=== PATIENT | male | born 1950 | race Caucasian/White ===

== ENCOUNTER 2022-02-06 00:04 | Emergency (ER) | payer MEDICARE ==
[~2022-02-06] VITALS: Ht 175.3 cm; Wt 99.8 kg
[2022-02-06 00:33] LABS: HEMATOCRIT 43.7 % (39.0-53.0); HEMOGLOBIN 15.1 g/dL (13.0-17.5); RED BLOOD COUNT 4.71 x10^6/uL (4.30-5.70); RED CELL DISTRIBUTION WIDTH 13.1 % (11.5-14.5); WHITE BLOOD COUNT 8.8 x10^3/uL (4.0-11.0)
[2022-02-06 00:47] LABS: CALCIUM 10.1 mg/dL (8.5-10.1); CREATININE 1.2 mg/dL (0.7-1.3); GFR 59.3; POTASSIUM 3.5 mmol/L (3.5-5.1)
[2022-02-06 02:59] VITALS: BP 170/61
--- NOTE | 2022-02-06 03:13 | PHYS DOC ---
General Adult EDM: Chief Complaint: OTHER COMPLAINTS HPI: HPI: Patient is a 71 year old male who presents with both hands being cold. Started this evening. History of partial parathyroidectomy. No fever or chills. No vomiting or diarrhea. No chest pain or shortness of breath. No loss of consciousness. No history of vasculitis. Denies being a smoker. His hands currently still feel very cold to him. He is concerned that it could be his calcium. Review of Systems: Review of Systems: Constitutional: Denies fever or chills. [] Eyes: Denies change in visual acuity. [] HENT: Denies nasal congestion or sore throat. [] Respiratory: Denies cough or shortness of breath. [] Cardiovascular: Denies chest pain or edema. [] GI: Denies abdominal pain, nausea, vomiting, bloody stools or diarrhea. [] : Denies dysuria. [] Musculoskeletal: Denies back pain or joint pain. Both hands feels cold Integument: Denies rash. [] Neurologic: Denies headache, focal weakness or sensory changes. [] Endocrine: Denies polyuria or polydipsia. [] Lymphatic: Denies swollen glands. [] Psychiatric: Denies depression or anxiety. [] Heart Score: C/O Chest Pain: No Risk Factors: Risk Factors: DM, Current or recent (<one month) smoker, HTN, HLP, family history of CAD, obesity. Risk Scores: Score 0 - 3: 2.5% MACE over next 6 weeks - Discharge Home Score 4 - 6: 20.3% MACE over next 6 weeks - Admit for Clinical Observation Score 7 - 10: 72.7% MACE over next 6 weeks - Early Invasive Strategies Allergies: Allergies: Allergies Coded Allergies Type Severity Reaction Last Updated Verified acetaminophen Allergy Intermediate 02/06/22 Yes hydrocodone Allergy Intermediate 02/06/22 Yes Physical Exam: PE: Constitutional: Well developed, well nourished, no acute distress, non-toxic appearance. [] HENT: Normocephalic, atraumatic, bilateral external ears normal, oropharynx moist, no oral exudates, nose normal. [] Eyes: PERRLA, EOMI, conjunctiva normal, no discharge. [] Neck: Normal range of motion, no tenderness, supple, no stridor. [] Cardiovascular:Heart rate regular rhythm, no murmur [] Lungs & Thorax: Bilateral breath sounds clear to auscultation [] Abdomen: Bowel sounds normal, soft, no tenderness, no masses, no pulsatile masses. [] Skin: Warm, dry, no erythema, no rash. [] Back: No tenderness, no CVA tenderness. [] Extremities: No tenderness, no cyanosis, no clubbing, ROM intact, no edema. [] Neurologic: Alert and oriented X 3, normal motor function, normal sensory function, no focal deficits noted. [] Psychologic: Affect normal, judgement normal, mood normal. [] Current Patient Data: Labs: Laboratory Tests Test 02/06/22 00:15 White Blood Count 8.8 x10^3/uL (4.0-11.0) Red Blood Count 4.71 x10^6/uL (4.30-5.70) Hemoglobin 15.1 g/dL (13.0-17.5) Hematocrit 43.7 % (39.0-53.0) Mean Corpuscular Volume 93 fL (79-100) Mean Corpuscular Hemoglobin 32 pg (25-35) Mean Corpuscular Hemoglobin Concent 35 g/dL (31-37) Red Cell Distribution Width 13.1 % (11.5-14.5) Platelet Count 233 x10^3/uL (140-400) Sodium Level 136 mmol/L (136-145) Potassium Level 3.5 mmol/L (3.5-5.1) Chloride Level 101 mmol/L (98-107) Carbon Dioxide Level 27 mmol/L (21-32) Anion Gap 8 (6-14) Blood Urea Nitrogen 27 mg/dL (8-26) H Creatinine 1.2 mg/dL (0.7-1.3) Estimated GFR (Cockcroft-Gault) 59.3 Glucose Level 128 mg/dL (70-99) H Calcium Level 10.1 mg/dL (8.5-10.1) Ionized Calcium 1.30 mmol/L (1.13-1.32) Creatine Kinase 215 U/L (39-308) Troponin I High Sensitivity 14 ng/L (4-75) WY-Cwl-A-Type Natriuretic Peptide 24 pg/mL (0-124) Laboratory Tests 02/06/22 00:15 Laboratory Tests 02/06/22 00:15 Vital Signs: Vital Signs Date Time Temp Pulse Resp B/P (MAP) Pulse Ox O2 Delivery O2 Flow Rate FiO2 02/06/22 01:59 90 16 120/72 (88) 98 Room Air EKG: EKG: [] Radiology/Procedures: Radiology/Procedures: [] Course & Med Decision Making: Course & Med Decision Making Pertinent Labs and Imaging studies reviewed. (See chart for details) Patient has an unremarkable physical exam. Both hands have intact pulses. I suggest after the labs are done today that he follow-up with his primary for further testing such as thyroid etc. Dragon Disclaimer: Dragon Disclaimer: This electronic medical record was generated, in whole or in part, using a voice recognition dictation system. Departure Departure Impression: Primary Impression: Sensation of change in body temperature Disposition: 01 HOME / SELF CARE / HOMELESS Condition: STABLE Referrals: UNKNOWN PCP NAME (PCP) Additional Instructions: Please follow-up with your primary care physician DEB RODRIGUEZ MD Feb 06, 2022 03:13
[2022-02-07] MEDS ORDERED: cefTRIAXone IM 500 MG VIAL. IM ONE (01:11)
[2022-02-07] MEDS ORDERED: LOSA100T14 PO (02:07)
[2022-02-07] MEDS ORDERED: AMLO-187 PO (02:07)
[2022-02-07] MEDS ORDERED: TAMS0.4C97 PO (02:07)
[2022-02-07] MEDS ORDERED: FLUO40CA9 PO (02:07)
[2022-02-07] MEDS ORDERED: BUPR150T15 PO (02:07)
[2022-02-07] MEDS ORDERED: FINA5TAB4 PO (02:07)
--- NOTE | 2022-02-07 11:52 | EKG ---
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
== END 2022-02-06 03:16 | disposition home or self-care (01) ==
LOC: ER 00:04
DX: J00 Acute nasopharyngitis [common cold] (principal); Z88.5 Allergy status to narcotic agent; Z88.6 Allergy status to analgesic agent
CPT/HCPCS: 36415; 80048; 82310; 82550; 83880; 84484; 85027; 93005; 99285-25

== ENCOUNTER 2022-02-06 16:53 | Inpatient (IN) | payer MEDICARE ==
[~2022-02-06] VITALS: Ht 182.9 cm; Wt 99.8 kg
[2022-02-06 17:37] LABS: BASO % 0 % (0-3); EOS % 0 % (0-3); HEMATOCRIT 43.8 % (39.0-53.0); HEMOGLOBIN 15.2 g/dL (13.0-17.5); LYMPH # 2.3 x10^3/uL (1.0-4.8); LYMPH % 19 % (24-48); MEAN CORPUSCULAR HEMOGLOBIN 32 pg (25-35); MEAN CORPUSCULAR HGB CONC 35 g/dL (31-37); MEAN CORPUSCULAR VOLUME 92 fL (79-100); MONO % 8 % (0-9); NEUT # 8.9 x10^3/uL (1.8-7.7); NEUT % 73 % (31-73); PLATELET COUNT 250 x10^3/uL (140-400); RED BLOOD COUNT 4.76 x10^6/uL (4.30-5.70); RED CELL DISTRIBUTION WIDTH 12.7 % (11.5-14.5); WHITE BLOOD COUNT 12.2 x10^3/uL (4.0-11.0)
[2022-02-06 18:04] LABS: ACETAMIN < 2.0 mcg/ml (10-30); SALIC 0.7 mg/dL (2.8-20.0)
[2022-02-06 18:05] LABS: ETHANOL < 10 mg/dL (0-10)
[2022-02-06] MEDS ORDERED: IV NORMAL SALINE 1000ML BAG 1,000 ML IV ONE ×2 (18:15→23:45)
--- NOTE | 2022-02-06 18:16 | RAD ---
CT HEAD INDICATION: Altered mental status COMPARISON: None Available. Exposure: One or more of the following individualized dose reduction techniques were utilized for thi s examination: 1. Automated exposure control 2. Adjustment of the mA and/or kV according to patient size 3. Use of iterative reconstruction technique TECHNIQUE: 5 mm contiguous axial images were obtained from the skull base to the vertex in both bone and soft tissue algorithm. FINDINGS: Very limited examination due to significant motion artifact which limits evaluation. No evidence of m idline shift identified. The lateral ventricles are appropriate for age. The evaluation of the base o f the brain is limited due to significant motion artifact. IMPRESSION: Very limited examination due to significant motion artifact which limits evaluation. Consider repeat CT head when appropriate. Electronically signed by: Pedro Pablo Sims MD (02/06/2022 6:14 PM) [id number]
[2022-02-06 19:34] LABS: RBC,URINE TNTC /HPF (0-2)
[2022-02-06 19:35] LABS: BACTERIA,URINE 0 /HPF (0-FEW)
[2022-02-06 19:40] LABS: AMPHETAMINE/METHAMPHETAMINE NEG (NEG); BARBITURATES NEG (NEG); BENZODIAZEPINES NEG (NEG); CANNABINOIDS NEG (NEG); COCAINE NEG (NEG); METHADONE NEG (NEG); OPIATES NEG (NEG); PHENCYCLIDINE NEG (NEG)
[2022-02-06 19:42] LABS: CREATININE 1.2 mg/dL (0.7-1.3); GFR 59.3; POTASSIUM 3.7 mmol/L (3.5-5.1)
[2022-02-06 19:48] LABS: ALBUMIN 4.7 g/dL (3.4-5.0); ALBUMIN/GLOBULIN RATIO 1.6 (1.0-1.7); TOTAL BILIRUBIN 0.7 mg/dL (0.2-1.0); TOTAL PROTEIN 7.7 g/dL (6.4-8.2)
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
[2022-02-06] MEDS ORDERED: hydrALAZINE 20 MG/ML VIAL. IVP ONE (23:45)
[2022-02-06] MEDS ORDERED: ONDANSETRON PF 4 MG/2 ML VIAL. IVP PRN (23:45)
[2022-02-07] VITALS (13 sets, daily range): BP systolic 98–175; BP diastolic 57–83
[2022-02-07] MEDS ORDERED: cefTRIAXone IV Push 1 GM VIAL. IVP ONE
[2022-02-07] MEDS ORDERED: CEPHALEXIN 250 MG CAPSULE. PO ONE (00:30)
[2022-02-07] MEDS ORDERED: cefTRIAXone IM 1 GM VIAL IM ONE (01:30)
[2022-02-07] MEDS ORDERED: ZIPRASIDONE IM 20 MG VIAL. IM ONE ×2 (01:30→09:00)
[2022-02-07] MEDS ORDERED: BUPR150T15 PO (02:07)
[2022-02-07] MEDS ORDERED: FLUO40CA9 PO (02:07)
[2022-02-07] MEDS ORDERED: LOSA100T14 PO (02:07)
[2022-02-07] MEDS ORDERED: TAMS0.4C97 PO (02:07)
[2022-02-07] MEDS ORDERED: AMLO-187 PO (02:07)
[2022-02-07] MEDS ORDERED: FINA5TAB4 PO (02:07)
--- NOTE | 2022-02-07 02:07 | NUR ---
SPOKE WITH PATIENTS , CHEMO, AND CONFIRMED PT MEDICATION LIST. PER PATIENT HASN'T BEEN TAKING HIS PROZAC OR WELLBUTRIN FOR AT LEAST A WEEK. ALSO STATED THAT HE HAS NOT BEEN TAKING HIS AMLODIPINE- PT STATES "MY BLOOD PRESSURE GETS TO LOW".
[2022-02-07] MEDS: IV NORMAL SALINE 1000ML BAG 1,000 ML IV SCH ×4 (03:00→22:49)
[2022-02-07 05:34] LABS: BASO % 0 % (0-3); EOS % 0 % (0-3); HEMATOCRIT 40.1 % (39.0-53.0); HEMOGLOBIN 13.6 g/dL (13.0-17.5); LYMPH # 0.9 x10^3/uL (1.0-4.8); LYMPH % 7 % (24-48); MEAN CORPUSCULAR HEMOGLOBIN 32 pg (25-35); MEAN CORPUSCULAR HGB CONC 34 g/dL (31-37); MEAN CORPUSCULAR VOLUME 93 fL (79-100); MONO # 1.1 x10^3/uL (0.0-1.1); MONO % 9 % (0-9); NEUT # 10.6 x10^3/uL (1.8-7.7); NEUT % 84 % (31-73); PLATELET COUNT 207 x10^3/uL (140-400); RED BLOOD COUNT 4.29 x10^6/uL (4.30-5.70); RED CELL DISTRIBUTION WIDTH 12.7 % (11.5-14.5); WHITE BLOOD COUNT 12.6 x10^3/uL (4.0-11.0)
[2022-02-07 06:04] LABS: ALBUMIN 3.6 g/dL (3.4-5.0); ALBUMIN/GLOBULIN RATIO 1.2 (1.0-1.7); CALCIUM 8.6 mg/dL (8.5-10.1); CREATININE 1.4 mg/dL (0.7-1.3); GFR 49.7; POTASSIUM 4.3 mmol/L (3.5-5.1); TOTAL BILIRUBIN 0.6 mg/dL (0.2-1.0); TOTAL PROTEIN 6.6 g/dL (6.4-8.2)
--- NOTE | 2022-02-07 07:57 | PDOC1 ---
History and Physical Date of Service: DOS: DATE: 02/07/22 TIME: 07:50 Chief Complaint: Chief Complain: Psychosis History of Present Illness: HPI: Patient is a 71-year-old male with past medical history of parathyroid surgery last year and hypercalcemia subsequently from that who presents to the ED today for acute psychotic episode. Mainly the providing history due to altered mental status. states that patient has not been acting like himself since Monday night. Apparently the patient has been taking his antidepressants for several years but has been inconsistently taking it for the past 3 weeks. It is unsure when his last dose of Wellbutrin was although he states that his last dose was 3 weeks ago. Patient was confused and agitated and aggressive. Denies any SI or HI. Patient has paranoid thoughts. No reported fevers, nausea vomiting, chest pain, shortness of breath or trauma or falls. Repeat CT of the head completed this morning showed no acute intracranial findings. Past Medical/Surgical History: PMH/PSH: Past Medical Histor: BPH,HERNIATED DISC,PARATHYROID ISSUES Past Surgical History: PARATHYROID SX, CATARACTS Allergies: Allergies: Coded Allergies: acetaminophen (Verified Allergy, Intermediate, 02/06/22) hydrocodone (Verified Allergy, Intermediate, 02/06/22) Family History: Family History: Reviewed with no relative findings in the chart Social History: Social History: Smoking Status: Never Smoker Alcohol Use: Occasionally Current Medications: Current Medications Current Medications Sodium Chloride 1,000 ml @ 1,000 mls/hr 1X ONCE IV Last administered on 02/06/22at 18:14; Start 02/06/22 at 18:15; Stop 02/06/22 at 19:14; Status DC Lorazepam (Ativan Inj) 1 mg 1X ONCE IVP Last administered on 02/06/22at 23:05; Start 02/06/22 at 23:30; Stop 02/06/22 at 23:31; Status DC Lorazepam (Ativan Inj) 2 mg STK-MED ONCE .ROUTE ; Start 02/06/22 at 23:01; Stop 02/06/22 at 23:01; Status DC Lorazepam (Ativan Inj) 1 mg 1X ONCE IVP ; Start 02/06/22 at 23:45; Stop 02/06/22 at 23:46; Status DC Sodium Chloride 1,000 ml @ 1,000 mls/hr 1X ONCE IV Last administered on 02/06/22at 23:31; Start 02/06/22 at 23:45; Stop 02/07/22 at 00:44; Status DC Hydralazine HCl (Apresoline Inj) 10 mg 1X ONCE IVP Last administered on 02/06/22at 23:40; Start 02/06/22 at 23:45; Stop 02/06/22 at 23:46; Status DC Ondansetron HCl (Zofran) 4 mg PRN Q8HRS PRN IVP NAUSEA/VOMITING 1ST CHOICE; Start 02/06/22 at 23:45; Stop 02/07/22 at 23:44 Ceftriaxone Sodium (Rocephin) 1 gm 1X ONCE IVP ; Start 02/07/22 at 00:00; Stop 02/07/22 at 00:01; Status Cancel Cephalexin HCl (Keflex) 500 mg 1X ONCE PO Last administered on 02/07/22at 00:41; Start 02/07/22 at 00:30; Stop 02/07/22 at 00:31; Status DC Lorazepam (Ativan Inj) 2 mg 1X ONCE IM Last administered on 02/07/22at 00:21; Start 02/07/22 at 00:30; Stop 02/07/22 at 00:31; Status DC Ziprasidone (Geodon Im) 40 mg 1X ONCE IM Last administered on 02/07/22at 01:20; Start 02/07/22 at 01:30; Stop 02/07/22 at 01:31; Status DC Ceftriaxone Sodium (Rocephin Im) 1 gm 1X ONCE IM Last administered on 02/07/22at 01:15; Start 02/07/22 at 01:30; Stop 02/07/22 at 01:31; Status DC Tamsulosin HCl (Flomax) 0.4 mg DAILY PO ; Start 02/07/22 at 09:00 Sodium Chloride 1,000 ml @ 150 mls/hr Q6H40M IV Last administered on 02/07/22at 03:00; Start 02/07/22 at 03:00 Active Scripts Active Reported Amlodipine Besylate 10 Mg Tablet 10 Mg PO DAILY Finasteride 5 Mg Tablet 5 Mg PO DAILY Finasteride 5 Mg Tablet 10 Mg PO DAILY Losartan Potassium 100 Mg Tablet 100 Mg PO DAILY Wellbutrin Xl (Bupropion Hcl) 150 Mg Tab.er.24h 150 Mg PO DAILY Prozac (Fluoxetine Hcl) 40 Mg Capsule 40 Mg PO DAILY Flomax (Tamsulosin Hcl) 0.4 Mg Cap.er.24h 0.4 Mg PO DAILY ROS: Review of Systems Review of System REVIEW OF SYSTEMS: Limited due to agitation Physical Exam: Vital Signs: Vital Signs Date Time Temp Pulse Resp B/P (MAP) Pulse Ox O2 Delivery O2 Flow Rate FiO2 02/07/22 07:25 80 16 111/58 (75) 97 Room Air 02/06/22 17:22 98.4 98.4 Physcial Exam: General: Well developed, well nourished, no acute distress, well appearing HEENT: Pupils equally round and reactive to light, EOMI, no discharge, normal conjunctiva Neck: Supple, no nuchal rigidity, no JVD, trachea midline, no tenderness Cardiac: RRR, no murmurs, no gallops, no rubs Chest/Lungs: CTAB, no wheeze, no rhonchi, no crackles Abdomen: soft, non-distended, no guarding, no peritoneal signs, non-tender Back: No tenderness Extremities: no edema, pulses intact, non-tender,capillary refill <3 sec bilateral upper and lower extremities, Neuro: Labs: Labs: Laboratory Tests Test 02/06/22 17:15 02/06/22 17:45 02/06/22 19:18 02/07/22 04:10 White Blood Count 12.2 x10^3/uL (4.0-11.0) 12.6 x10^3/uL (4.0-11.0) Red Blood Count 4.76 x10^6/uL (4.30-5.70) 4.29 x10^6/uL (4.30-5.70) Hemoglobin 15.2 g/dL (13.0-17.5) 13.6 g/dL (13.0-17.5) Hematocrit 43.8 % (39.0-53.0) 40.1 % (39.0-53.0) Mean Corpuscular Volume 92 fL (79-100) 93 fL (79-100) Mean Corpuscular Hemoglobin 32 pg (25-35) 32 pg (25-35) Mean Corpuscular Hemoglobin Concent 35 g/dL (31-37) 34 g/dL (31-37) Red Cell Distribution Width 12.7 % (11.5-14.5) 12.7 % (11.5-14.5) Platelet Count 250 x10^3/uL (140-400) 207 x10^3/uL (140-400) Neutrophils (%) (Auto) 73 % (31-73) 84 % (31-73) Lymphocytes (%) (Auto) 19 % (24-48) 7 % (24-48) Monocytes (%) (Auto) 8 % (0-9) 9 % (0-9) Eosinophils (%) (Auto) 0 % (0-3) 0 % (0-3) Basophils (%) (Auto) 0 % (0-3) 0 % (0-3) Neutrophils # (Auto) 8.9 x10^3/uL (1.8-7.7) 10.6 x10^3/uL (1.8-7.7) Lymphocytes # (Auto) 2.3 x10^3/uL (1.0-4.8) 0.9 x10^3/uL (1.0-4.8) Monocytes # (Auto) 1.0 x10^3/uL (0.0-1.1) 1.1 x10^3/uL (0.0-1.1) Eosinophils # (Auto) 0.0 x10^3/uL (0.0-0.7) 0.0 x10^3/uL (0.0-0.7) Basophils # (Auto) 0.0 x10^3/uL (0.0-0.2) 0.0 x10^3/uL (0.0-0.2) Sodium Level 134 mmol/L (136-145) 137 mmol/L (136-145) Potassium Level 3.7 mmol/L (3.5-5.1) 4.3 mmol/L (3.5-5.1) Chloride Level 97 mmol/L (98-107) 103 mmol/L (98-107) Carbon Dioxide Level 25 mmol/L (21-32) 25 mmol/L (21-32) Anion Gap 12 (6-14) 9 (6-14) Blood Urea Nitrogen 26 mg/dL (8-26) 24 mg/dL (8-26) Creatinine 1.2 mg/dL (0.7-1.3) 1.4 mg/dL (0.7-1.3) Estimated GFR (Cockcroft-Gault) 59.3 49.7 BUN/Creatinine Ratio 22 (6-20) 17 (6-20) Glucose Level 127 mg/dL (70-99) 104 mg/dL (70-99) Calcium Level 10.0 mg/dL (8.5-10.1) 8.6 mg/dL (8.5-10.1) Magnesium Level 2.1 mg/dL (1.8-2.4) Total Bilirubin 0.7 mg/dL (0.2-1.0) 0.6 mg/dL (0.2-1.0) Aspartate Amino Transf (AST/SGOT) 23 U/L (15-37) 24 U/L (15-37) Alanine Aminotransferase (ALT/SGPT) 30 U/L (16-63) 21 U/L (16-63) Alkaline Phosphatase 66 U/L (46-116) 48 U/L (46-116) Creatine Kinase 309 U/L (39-308) Total Protein 7.7 g/dL (6.4-8.2) 6.6 g/dL (6.4-8.2) Albumin 4.7 g/dL (3.4-5.0) 3.6 g/dL (3.4-5.0) Albumin/Globulin Ratio 1.6 (1.0-1.7) 1.2 (1.0-1.7) Salicylates Level 0.7 mg/dL (2.8-20.0) Salicylate Last Dose Date Unknown Salicylate Last Dose Time Unknown Acetaminophen Level < 2.0 mcg/ml (10-30) Acetaminophen Last Dose Date Unknown Acetaminophen Last Dose Time Unknown Ethyl Alcohol Level < 10 mg/dL (0-10) SARS-CoV-2 Antigen (Rapid) Negative (NEGATIVE) Urine Collection Type Unknown Urine Color (Auto) Brown Urine Turbidity Hazy Urine pH (Auto) (<5.0-8.0) Urine Specific [place] (1.000-1.030) Urine Protein (Auto) mg/dL (Negative) Urine Glucose (Auto)(UA) mg/dL (Negative) Urine Ketones (Auto) mg/dL (Negative) Urine Blood (Auto) (Negative) Urine Nitrite (Auto) (Negative) Urine Bilirubin (Auto) (Negative) Urine Urobilinogen (Auto) mg/dL (Normal) Urine Leukocyte Esterase (Auto) (Negative) Urine RBC Tntc /HPF (0-2) Urine WBC 11-20 /HPF (0-4) Urine Squamous Epithelial Cells Occ /LPF Urine Bacteria 0 /HPF (0-FEW) Urine Mucus Slight /LPF Urine Opiates Screen Neg (NEG) Urine Methadone Screen Neg (NEG) Urine Barbiturates Neg (NEG) Urine Phencyclidine Screen Neg (NEG) Urine Amphetamine/Methamphetamine Neg (NEG) Urine Benzodiazepines Screen Neg (NEG) Urine Cocaine Screen Neg (NEG) Urine Cannabinoids Screen Neg (NEG) Urine Ethyl Alcohol Neg (NEG) Laboratory Tests Test 02/06/22 17:15 02/06/22 17:45 02/06/22 19:18 02/07/22 04:10 White Blood Count 12.2 x10^3/uL (4.0-11.0) 12.6 x10^3/uL (4.0-11.0) Red Blood Count 4.76 x10^6/uL (4.30-5.70) 4.29 x10^6/uL (4.30-5.70) Hemoglobin 15.2 g/dL (13.0-17.5) 13.6 g/dL (13.0-17.5) Hematocrit 43.8 % (39.0-53.0) 40.1 % (39.0-53.0) Mean Corpuscular Volume 92 fL (79-100) 93 fL (79-100) Mean Corpuscular Hemoglobin 32 pg (25-35) 32 pg (25-35) Mean Corpuscular Hemoglobin Concent 35 g/dL (31-37) 34 g/dL (31-37) Red Cell Distribution Width 12.7 % (11.5-14.5) 12.7 % (11.5-14.5) Platelet Count 250 x10^3/uL (140-400) 207 x10^3/uL (140-400) Neutrophils (%) (Auto) 73 % (31-73) 84 % (31-73) Lymphocytes (%) (Auto) 19 % (24-48) 7 % (24-48) Monocytes (%) (Auto) 8 % (0-9) 9 % (0-9) Eosinophils (%) (Auto) 0 % (0-3) 0 % (0-3) Basophils (%) (Auto) 0 % (0-3) 0 % (0-3) Neutrophils # (Auto) 8.9 x10^3/uL (1.8-7.7) 10.6 x10^3/uL (1.8-7.7) Lymphocytes # (Auto) 2.3 x10^3/uL (1.0-4.8) 0.9 x10^3/uL (1.0-4.8) Monocytes # (Auto) 1.0 x10^3/uL (0.0-1.1) 1.1 x10^3/uL (0.0-1.1) Eosinophils # (Auto) 0.0 x10^3/uL (0.0-0.7) 0.0 x10^3/uL (0.0-0.7) Basophils # (Auto) 0.0 x10^3/uL (0.0-0.2) 0.0 x10^3/uL (0.0-0.2) Sodium Level 134 mmol/L (136-145) 137 mmol/L (136-145) Potassium Level 3.7 mmol/L (3.5-5.1) 4.3 mmol/L (3.5-5.1) Chloride Level 97 mmol/L (98-107) 103 mmol/L (98-107) Carbon Dioxide Level 25 mmol/L (21-32) 25 mmol/L (21-32) Anion Gap 12 (6-14) 9 (6-14) Blood Urea Nitrogen 26 mg/dL (8-26) 24 mg/dL (8-26) Creatinine 1.2 mg/dL (0.7-1.3) 1.4 mg/dL (0.7-1.3) Estimated GFR (Cockcroft-Gault) 59.3 49.7 BUN/Creatinine Ratio 22 (6-20) 17 (6-20) Glucose Level 127 mg/dL (70-99) 104 mg/dL (70-99) Calcium Level 10.0 mg/dL (8.5-10.1) 8.6 mg/dL (8.5-10.1) Magnesium Level 2.1 mg/dL (1.8-2.4) Total Bilirubin 0.7 mg/dL (0.2-1.0) 0.6 mg/dL (0.2-1.0) Aspartate Amino Transf (AST/SGOT) 23 U/L (15-37) 24 U/L (15-37) Alanine Aminotransferase (ALT/SGPT) 30 U/L (16-63) 21 U/L (16-63) Alkaline Phosphatase 66 U/L (46-116) 48 U/L (46-116) Creatine Kinase 309 U/L (39-308) Total Protein 7.7 g/dL (6.4-8.2) 6.6 g/dL (6.4-8.2) Albumin 4.7 g/dL (3.4-5.0) 3.6 g/dL (3.4-5.0) Albumin/Globulin Ratio 1.6 (1.0-1.7) 1.2 (1.0-1.7) Salicylates Level 0.7 mg/dL (2.8-20.0) Salicylate Last Dose Date Unknown Salicylate Last Dose Time Unknown Acetaminophen Level < 2.0 mcg/ml (10-30) Acetaminophen Last Dose Date Unknown Acetaminophen Last Dose Time Unknown Ethyl Alcohol Level < 10 mg/dL (0-10) SARS-CoV-2 Antigen (Rapid) Negative (NEGATIVE) Urine Collection Type Unknown Urine Color (Auto) Brown Urine Turbidity Hazy Urine pH (Auto) (<5.0-8.0) Urine Specific [place] (1.000-1.030) Urine Protein (Auto) mg/dL (Negative) Urine Glucose (Auto)(UA) mg/dL (Negative) Urine Ketones (Auto) mg/dL (Negative) Urine Blood (Auto) (Negative) Urine Nitrite (Auto) (Negative) Urine Bilirubin (Auto) (Negative) Urine Urobilinogen (Auto) mg/dL (Normal) Urine Leukocyte Esterase (Auto) (Negative) Urine RBC Tntc /HPF (0-2) Urine WBC 11-20 /HPF (0-4) Urine Squamous Epithelial Cells Occ /LPF Urine Bacteria 0 /HPF (0-FEW) Urine Mucus Slight /LPF Urine Opiates Screen Neg (NEG) Urine Methadone Screen Neg (NEG) Urine Barbiturates Neg (NEG) Urine Phencyclidine Screen Neg (NEG) Urine Amphetamine/Methamphetamine Neg (NEG) Urine Benzodiazepines Screen Neg (NEG) Urine Cocaine Screen Neg (NEG) Urine Cannabinoids Screen Neg (NEG) Urine Ethyl Alcohol Neg (NEG) Images: Images PROCEDURE: CT HEAD WO CONTRAST CT HEAD INDICATION: Altered mental status COMPARISON: None Available. Exposure: One or more of the following individualized dose reduction techniques were utilized for this examination: 1. Automated exposure control 2. Adjustment of the mA and/or kV according to patient size 3. Use of iterative reconstruction technique TECHNIQUE: 5 mm contiguous axial images were obtained from the skull base to the vertex in both bone and soft tissue algorithm. FINDINGS: Very limited examination due to significant motion artifact which limits evaluation. No evidence of midline shift identified. The lateral ventricles are appropriate for age. The evaluation of the base of the brain is limited due to significant motion artifact. IMPRESSION: Very limited examination due to significant motion artifact which limits evaluation. Consider repeat CT head when appropriate. Assessment/Plan Assessment/Plan Acute metabolic/toxic encephalopathy, likely due to Wellbutrin withdrawal Acute UTI JUSTYN due to vasomotor nephropathy. Hypertensive urgency History of BPH History of parathyroid surgery History of hypertension Admit to hospitalist service for further management Continue IV fluids Continue empiric IV antibiotics Follow-up urine cultures Consider taper Wellbutrin, will observe for now DC one-to-one observation SCD and ambulation for DVT prophylaxis Regular diet CODE STATUS full Discussed with RN and SW Disposition inpatient management as above DPOA: Justifications for Admission Other Justification CHRIS GUILLEN MD Feb 07, 2022 07:57
[2022-02-07] MEDS ORDERED: ACETAMINOPHEN 325 MG TABLET. PO PRN (08:15)
[2022-02-07] MEDS ORDERED: ONDANSETRON PF 4 MG/2 ML VIAL. IVP PRN (08:15)
[2022-02-07] MEDS ORDERED: SENNOSIDES 8.6 MG TABLET PO PRN (08:15)
[2022-02-07] MEDS ORDERED: PROCHLORPERAZINE 10 MG/2 ML VIAL. IV PRN (08:15)
[2022-02-07] MEDS ORDERED: ZOLPIDEM 5 MG TABLET. PO PRN (08:15)
[2022-02-07] MEDS ORDERED: diphenhydrAMINE 50 MG/ML VIAL IVP PRN (08:15)
[2022-02-07] MEDS ORDERED: DOCUSATE SODIUM 100 MG CAPSULE. PO PRN (08:15)
[2022-02-07] MEDS ORDERED: DEXTROSE 50% 25 GM / 50ML DISP.SYRIN. IV PRN (08:15)
[2022-02-07] MEDS ORDERED: diphenhydrAMINE HCL 25 MG CAPSULE PO PRN ×2 (08:15)
[2022-02-07] MEDS: TAMSULOSIN 0.4 MG CAP.ER.24H. PO SCH (08:46)
[2022-02-07 11:35] LABS: BACTERIA,URINE FEW /HPF (0-FEW)
--- NOTE | 2022-02-07 12:03 | NUR ---
SS following for discharge planning. SS reviewed pt chart and discussed with pt RN. Pt is from home with spouse and is currently on room air. COVID19 PCR test pending. Pt having repeat UA and repeat CT scan of the head today. PAT team following to assess behavioral health needs. Richard from PAT team following. SS will continue to follow for discharge planning.
--- NOTE | 2022-02-07 12:15 | RAD ---
INDICATION: Reason: AMS / Spl. Instructions: / History: COMPARISON: One day prior TECHNIQUE: Axial CT images obtained through the head without intravenous contrast. One or more of the following individualized dose reduction techniques were utilized for this examinat ion: 1. Automated exposure control; 2. Adjustment of the mA and/or kV according to patient size; 3 . Use of iterative reconstruction technique. FINDINGS: No intracranial hemorrhage. No significant midline shift. Ventricles and sulci are globally prominent. Scattered foci of low attenuation within the white matter. IMPRESSION: * No acute intracranial hemorrhage. * Scattered regions of low attenuation within the white matter. Non-specific in nature but a common finding and frequently secondary to small vessel ischemic disease. If there is high concern for acut e cause clinically MRI could better assess acuity. Electronically signed by: Twan Ferreira MD (02/07/2022 12:13 PM) [id number]
[2022-02-07] MEDS: cefTRIAXone IV Push 1 GM VIAL. IVP SCH (13:12)
--- NOTE | 2022-02-07 23:58 | NUR ---
patient called nurse in room, elida and charge lpn responded. patient had several questions regarding his medications. Questions answered. The patient requested that i close my eyes. I asked why. Patient states" he had a lesson to teach me. I refused.
[2022-02-08 03:00] VITALS: BP 183/88
--- NOTE | 2022-02-08 03:08 | NUR ---
patient states that he is unable to void. called obtain order for straight cath- 950 yellow urine return
[2022-02-08 07:00] VITALS: BP 194/98
[2022-02-08 07:55] LABS: BASO % 1 % (0-3); EOS # 0.1 x10^3/uL (0.0-0.7); EOS % 1 % (0-3); LYMPH # 1.1 x10^3/uL (1.0-4.8); LYMPH % 11 % (24-48); MEAN CORPUSCULAR HEMOGLOBIN 32 pg (25-35); MEAN CORPUSCULAR HGB CONC 34 g/dL (31-37); MEAN CORPUSCULAR VOLUME 93 fL (79-100); MONO # 0.7 x10^3/uL (0.0-1.1); MONO % 8 % (0-9); NEUT # 7.6 x10^3/uL (1.8-7.7); NEUT % 80 % (31-73); PLATELET COUNT 218 x10^3/uL (140-400); RED BLOOD COUNT 4.42 x10^6/uL (4.30-5.70); WHITE BLOOD COUNT 9.5 x10^3/uL (4.0-11.0)
[2022-02-08 08:06] LABS: CALCIUM 8.7 mg/dL (8.5-10.1); GFR 73.2; MAGNESIUM 1.9 mg/dL (1.8-2.4); PHOSPHORUS 2.5 mg/dL (2.6-4.7); POTASSIUM 3.5 mmol/L (3.5-5.1)
[2022-02-08] MEDS: FLUoxetine HCL 20 MG CAPSULE PO SCH (09:11)
[2022-02-08] MEDS: TAMSULOSIN 0.4 MG CAP.ER.24H. PO SCH (09:11)
[2022-02-08] MEDS: LOSARTAN POTASSIUM 50 MG TABLET. PO SCH (10:18)
--- NOTE | 2022-02-08 12:51 | PDOC ---
[employer] PROGRESS NOTE Date of Service DOS: DATE: 02/08/22 TIME: 12:49 Chief Complaint Chief Complaint 71-year-old male with past medical history of parathyroid surgery last year and hypercalcemia subsequently from that who presents to the ED today for acute psychotic episode. Mainly the providing history due to altered mental status. states that patient has not been acting like himself since Monday night. Apparently the patient has been taking his antidepressants for several years but has been inconsistently taking it for the past 3 weeks. It is unsure when his last dose of Wellbutrin was although he states that his last dose was 3 weeks ago. Patient was confused and agitated and aggressive. Denies any SI or HI. Patient has paranoid thoughts. No reported fevers, nausea vomiting, chest pain, shortness of breath or trauma or falls. 02/08/2022 No acute events overnight. Patient seen examined bedside. Sleeping and at bedside. Still with some disorganized bizarre thinking. No SI or HI. One-to-one has been discontinued. I have resumed his Prozac at half the dose for tapering purposes. We will continue to observe in the hospital. Still pending for urine cultures. Continue with IV Rocephin for now. Begum in place and Flomax restarted. Patient's chart, labs, images were reviewed and discussed with RN History of Present Illness History of Present Illness Assessment/Plan Acute metabolic/toxic and infectious encephalopathy, likely due to Wellbutrin abrupt cessation and UTI Hypertensive urgency Acute UTI JUSTYN due to vasomotor nephropathy. Hypertensive urgency Urinary retention History of BPH History of parathyroid surgery History of hypertension Maintain Begum and monitor urine output, resume Flomax Pending urine cultures Resume losartan and amlodipine Continue IV fluids Continue empiric IV antibiotics Follow-up urine cultures Consider taper Wellbutrin, will observe for now DC one-to-one observation SCD and ambulation for DVT prophylaxis Regular diet CODE STATUS full Discussed with RN and SW Disposition inpatient management as above DPOA: Vitals/I&O Vitals/I&O: Vital Signs Date Time Temp Pulse Resp B/P (MAP) Pulse Ox O2 Delivery O2 Flow Rate FiO2 02/08/22 10:19 88 194/98 02/08/22 08:16 Room Air 02/08/22 07:00 20 99 02/07/22 23:00 97.0 97.0 I & O 02/07/22 02/07/22 02/08/22 15:00 23:00 07:00 Intake Total 120 ml Output Total 1100 ml 1850 ml Balance -980 ml -1850 ml Physical Exam General: Alert, Cooperative Heart: Regular rate Lungs: Clear Abdomen: Normal bowel sounds Extremities: No clubbing Skin: No rashes Labs Labs: Laboratory Tests Test 02/08/22 06:00 White Blood Count 9.5 x10^3/uL (4.0-11.0) Red Blood Count 4.42 x10^6/uL (4.30-5.70) Hemoglobin 14.0 g/dL (13.0-17.5) Hematocrit 41.0 % (39.0-53.0) Mean Corpuscular Volume 93 fL (79-100) Mean Corpuscular Hemoglobin 32 pg (25-35) Mean Corpuscular Hemoglobin Concent 34 g/dL (31-37) Red Cell Distribution Width 13.0 % (11.5-14.5) Platelet Count 218 x10^3/uL (140-400) Neutrophils (%) (Auto) 80 % (31-73) Lymphocytes (%) (Auto) 11 % (24-48) Monocytes (%) (Auto) 8 % (0-9) Eosinophils (%) (Auto) 1 % (0-3) Basophils (%) (Auto) 1 % (0-3) Neutrophils # (Auto) 7.6 x10^3/uL (1.8-7.7) Lymphocytes # (Auto) 1.1 x10^3/uL (1.0-4.8) Monocytes # (Auto) 0.7 x10^3/uL (0.0-1.1) Eosinophils # (Auto) 0.1 x10^3/uL (0.0-0.7) Basophils # (Auto) 0.0 x10^3/uL (0.0-0.2) Sodium Level 139 mmol/L (136-145) Potassium Level 3.5 mmol/L (3.5-5.1) Chloride Level 104 mmol/L (98-107) Carbon Dioxide Level 25 mmol/L (21-32) Anion Gap 10 (6-14) Blood Urea Nitrogen 22 mg/dL (8-26) Creatinine 1.0 mg/dL (0.7-1.3) Estimated GFR (Cockcroft-Gault) 73.2 Glucose Level 97 mg/dL (70-99) Calcium Level 8.7 mg/dL (8.5-10.1) Phosphorus Level 2.5 mg/dL (2.6-4.7) Magnesium Level 1.9 mg/dL (1.8-2.4) Assessment and Plan Assessmemt and Plan Problems Medical Problems: (1) Altered mental status Status: Acute (2) Psychological assessment Status: Acute (3) UTI (urinary tract infection) Status: Acute Comment Review of Relevant I have reviewed the following items monty (where applicable) has been applied. Medications: Current Medications Medications (Trade) Dose Ordered Sig/Bhaskar Route PRN Reason Start Time Stop Time Status Last Admin Dose Admin Ceftriaxone Sodium (Rocephin) 1 gm Q24H IVP 02/07/22 13:00 02/07/22 13:12 Fluoxetine HCl (PROzac) 20 mg DAILY PO 02/08/22 09:00 02/08/22 09:11 Amlodipine Besylate (Norvasc) 10 mg DAILY PO 02/08/22 11:00 02/08/22 10:19 Losartan Potassium (Cozaar) 100 mg DAILY PO 02/08/22 11:00 02/08/22 10:18 Justifications for Admission Other Justification Encephalopathy CHRIS GUILLEN MD Feb 08, 2022 12:51
--- NOTE | 2022-02-08 13:17 | NUR ---
SS following up with discharge planning. SS reviewed pt chart and discussed with pt RN and RN supervisor printing and stamping. Pt 1:1. COVID19 negative. UTI. Pt on IV Rocephin. Pt is currently on room air. Confused. PAT team followed up today. Pt started Zoloft this AM. Request for [facility] referral. Referral sent to [facility]. SS spoke with Sophia and was notified that they are not in network with pt's [employer] insurance. Referral sent to [facility], ; fax [phone]. Currently awaiting acceptance decision at this time. SS will continue to follow for discharge planning.
[2022-02-08] MEDS ORDERED: ACETAMINOPHEN 325 MG TABLET. PO PRN (13:45)
[2022-02-08] MEDS: cefTRIAXone IV Push 1 GM VIAL. IVP SCH (13:47)
[2022-02-08 15:00] VITALS: BP 148/62
--- NOTE | 2022-02-08 17:40 | NUR ---
pt was sleeping/resting peacefully at shift change this morning, he was assigned a sitter, Johann YANCEY. came into the room to sit with pt and he seemed to listen to her really well. he was very confused about where he was and sometimes had periods of not making sense when trying to talk with pt. he was not able to tell me where he was or the situation. he did tell me his name. when giving pt medication be sure to let him know that it is ok to take the meds, he will question all meds given. at one point at around noon today pt told Johann that he wanted to get up from the bed and she thought he wanted to sit in the chair at the window but before Johann could help the pt he was laying on his side on the floor. this was not a slip or fall. he purposely wanted to lay on the floor, he had a pillow under his head with no pillowcase. he told us that it was cooler down there. myself and other nurses and aides tried to talk him into getting up on the bed because the floor was not safe or cleanest. he would not budge. so we thought ok lets get the fall mats that we can put on the floor and have him sleep on those. so those were found and we were able to talk him into rolling over onto those. he slept there for about two hours when his came back from an errand and got him to get back into the bed. pt can sometimes be inappropriate with the nurses, he rubbed my leg and said he wanted to know if I was cold or hot. at around 1700 pt started to get aggressive and agitated and the asked if there was something we could give him and so lorazepam was administered to the patient. and he then fell asleep. he has moments of talking strangely and other moments where he understands. Justin Hardwick RN
[2022-02-08] MEDS: LACTOBACILLUS RHAMNOSUS GG 1 CAPSULE. PO SCH (19:55)
[2022-02-08] MEDS ORDERED: ZIPRASIDONE IM 20 MG VIAL. IM PRN (20:00)
[2022-02-09 04:46] LABS: BASO % 1 % (0-3); EOS # 0.2 x10^3/uL (0.0-0.7); EOS % 2 % (0-3); HEMATOCRIT 39.9 % (39.0-53.0); HEMOGLOBIN 13.8 g/dL (13.0-17.5); LYMPH # 1.7 x10^3/uL (1.0-4.8); LYMPH % 18 % (24-48); MEAN CORPUSCULAR HEMOGLOBIN 32 pg (25-35); MEAN CORPUSCULAR HGB CONC 35 g/dL (31-37); MEAN CORPUSCULAR VOLUME 93 fL (79-100); MONO # 1.1 x10^3/uL (0.0-1.1); MONO % 11 % (0-9); NEUT # 6.6 x10^3/uL (1.8-7.7); NEUT % 68 % (31-73); PLATELET COUNT 207 x10^3/uL (140-400); RED BLOOD COUNT 4.29 x10^6/uL (4.30-5.70); RED CELL DISTRIBUTION WIDTH 12.9 % (11.5-14.5); WHITE BLOOD COUNT 9.7 x10^3/uL (4.0-11.0)
[2022-02-09 05:04] LABS: CALCIUM 8.6 mg/dL (8.5-10.1); CREATININE 1.1 mg/dL (0.7-1.3); GFR 65.6; MAGNESIUM 2.2 mg/dL (1.8-2.4); POTASSIUM 3.6 mmol/L (3.5-5.1)
[2022-02-09 07:00] VITALS: BP 143/65
[2022-02-09] MEDS: TAMSULOSIN 0.4 MG CAP.ER.24H. PO SCH (09:58)
[2022-02-09] MEDS: FLUoxetine HCL 20 MG CAPSULE PO SCH (09:59)
[2022-02-09] MEDS: LACTOBACILLUS RHAMNOSUS GG 1 CAPSULE. PO SCH ×2 (09:59→20:36)
[2022-02-09] MEDS: LOSARTAN POTASSIUM 50 MG TABLET. PO SCH (09:59)
[2022-02-09 10:05] VITALS: BP 147/77
--- NOTE | 2022-02-09 10:48 | EKG ---
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
--- NOTE | 2022-02-09 11:53 | PDOC ---
[facility] [facility] PROGRESS NOTE Date of Service DOS: DATE: 02/09/22 TIME: 11:52 Chief Complaint Chief Complaint 71-year-old male with past medical history of parathyroid surgery last year and hypercalcemia subsequently from that who presents to the ED today for acute psychotic episode. Mainly the providing history due to altered mental status. states that patient has not been acting like himself since Monday night. Apparently the patient has been taking his antidepressants for several years but has been inconsistently taking it for the past 3 weeks. It is unsure when his last dose of Wellbutrin was although he states that his last dose was 3 weeks ago. Patient was confused and agitated and aggressive. Denies any SI or HI. Patient has paranoid thoughts. No reported fevers, nausea vomiting, chest pain, shortness of breath or trauma or falls. 02/08/2022 No acute events overnight. Patient seen examined bedside. Sleeping and at bedside. Still with some disorganized bizarre thinking. No SI or HI. One-to-one has been discontinued. I have resumed his Prozac at half the dose for tapering purposes. We will continue to observe in the hospital. Still pending for urine cultures. Continue with IV Rocephin for now. Begum in place and Flomax restarted. Patient's chart, labs, images were reviewed and discussed with RN 02/09/2022 No acute events overnight. Patient seen examined bedside. SSRI started yesterday with sertraline. Still some bizarre behavior reported by the nurses. No aggression or SI or HI. Patient may benefit from Jaleesa psych admission. Patient's chart, labs, images were reviewed and discussed with RN History of Present Illness History of Present Illness Assessment/Plan Acute metabolic/toxic and infectious encephalopathy, likely due to Wellbutrin abrupt cessation and UTI Hypertensive urgency Acute UTI due to staph epidermidis JUSTYN due to vasomotor nephropathy. Hypertensive urgency Urinary retention History of BPH History of parathyroid surgery History of hypertension Pending urine culture sensitivities Maintain Begum and monitor urine output, resume Flomax Resume losartan and amlodipine Continue IV fluids Continue empiric IV antibiotics Follow-up urine cultures Consider taper Wellbutrin, will observe for now DC one-to-one observation SCD and ambulation for DVT prophylaxis Regular diet CODE STATUS full Discussed with RN and SW Disposition inpatient management as above DPOA: Vitals/I&O Vitals/I&O: Vital Signs Date Time Temp Pulse Resp B/P (MAP) Pulse Ox O2 Delivery O2 Flow Rate FiO2 02/09/22 10:05 97.8 79 18 147/77 (100) 95 Room Air 97.8 I & O 02/08/22 02/08/22 02/09/22 15:00 23:00 07:00 Intake Total 0 ml 200 ml Output Total 2100 ml 200 ml 350 ml Balance -2100 ml -200 ml -150 ml Physical Exam General: Alert, Cooperative Heart: Regular rate Lungs: Clear Abdomen: Normal bowel sounds Extremities: No clubbing Skin: No rashes Labs Labs: Laboratory Tests Test 02/09/22 03:40 White Blood Count 9.7 x10^3/uL (4.0-11.0) Red Blood Count 4.29 x10^6/uL (4.30-5.70) Hemoglobin 13.8 g/dL (13.0-17.5) Hematocrit 39.9 % (39.0-53.0) Mean Corpuscular Volume 93 fL (79-100) Mean Corpuscular Hemoglobin 32 pg (25-35) Mean Corpuscular Hemoglobin Concent 35 g/dL (31-37) Red Cell Distribution Width 12.9 % (11.5-14.5) Platelet Count 207 x10^3/uL (140-400) Neutrophils (%) (Auto) 68 % (31-73) Lymphocytes (%) (Auto) 18 % (24-48) Monocytes (%) (Auto) 11 % (0-9) Eosinophils (%) (Auto) 2 % (0-3) Basophils (%) (Auto) 1 % (0-3) Neutrophils # (Auto) 6.6 x10^3/uL (1.8-7.7) Lymphocytes # (Auto) 1.7 x10^3/uL (1.0-4.8) Monocytes # (Auto) 1.1 x10^3/uL (0.0-1.1) Eosinophils # (Auto) 0.2 x10^3/uL (0.0-0.7) Basophils # (Auto) 0.0 x10^3/uL (0.0-0.2) Sodium Level 141 mmol/L (136-145) Potassium Level 3.6 mmol/L (3.5-5.1) Chloride Level 105 mmol/L (98-107) Carbon Dioxide Level 29 mmol/L (21-32) Anion Gap 7 (6-14) Blood Urea Nitrogen 22 mg/dL (8-26) Creatinine 1.1 mg/dL (0.7-1.3) Estimated GFR (Cockcroft-Gault) 65.6 Glucose Level 93 mg/dL (70-99) Calcium Level 8.6 mg/dL (8.5-10.1) Magnesium Level 2.2 mg/dL (1.8-2.4) Assessment and Plan Assessmemt and Plan Problems Medical Problems: (1) Altered mental status Status: Acute (2) Psychological assessment Status: Acute (3) UTI (urinary tract infection) Status: Acute Comment Review of Relevant I have reviewed the following items monty (where applicable) has been applied. Medications: Current Medications Medications (Trade) Dose Ordered Sig/Bhaskar Route PRN Reason Start Time Stop Time Status Last Admin Dose Admin Acetaminophen (Tylenol) 650 mg PRN Q6HRS PRN PO MILD PAIN / TEMP > 100.3'F 02/08/22 13:45 02/08/22 13:49 Lactobacillus Rhamnosus (Culturelle) 1 cap BID PO 02/08/22 21:00 02/09/22 09:59 Justifications for Admission Other Justification Encephalopathy CHRIS GUILLEN MD Feb 09, 2022 11:53
[2022-02-09 14:06] VITALS: BP 136/73
[2022-02-09] MEDS: cefTRIAXone IV Push 1 GM VIAL. IVP SCH (14:12)
--- NOTE | 2022-02-09 14:21 | PDOC2 ---
TRISH CAMPUZANO BENZENE WORKER 02/09/22 1421: CARDIAC CONSULT DATE OF CONSULT Date of Consult DATE: 02/09/22 TIME: 14:04 REASON FOR CONSULT Reason for Consult: Left arm tingling with hx of heart attack REFERRING PHYSICIAN Referring Physician: Harshal SOURCE Source: Caregiver (spouse), Chart review, Patient HISTORY OF PRESENT ILLNESS HISTORY OF PRESENT ILLNESS This is 71 yo male admitted for altered mentation. He has stopped taking his wellbutrin 3 weeks ago and prozac 1 week. He has been becoming more confused and agitation as described per chart review. Presently he is AOx3 but quite irritable. Reports x1 with WILKINS going up the hill but no other further recurrence. No chest pain or tightness/pressure. No recent falls or injury. Complains of intermittent bilateral arm tingling that starts first to LUE then to the right with addition of sweaty palm but no ROM deviations. No jaw tightness, diaphoresis or SOA at rest. He has not had any formal ischemic workup in the past. He was at the clinic at one point and had an EKG and noted to be abnormal and he assumed he had a heart condition but no prior ischemic workup. No fever or chills. He also drink heavily with martini when he was still taking wellbutrin and in the last week he has decreased his liqur consumption to 1/2 beer a day. He has been titrating his own medications as well on his own. PAST MEDICAL HISTORY Cardiovascular: HTN, Hyperlipidemia Pulmonary: No pertinent hx CENTRAL NERVOUS SYSTEM: Other (No pertinent history) GI: No pertinent hx Heme/Onc: No pertinent hx Hepatobiliary: No pertinent hx Psych: Anxiety, Depression Musculoskeletal: Osteoarthritis Rheumatologic: No pertinent hx Infectious disease: No pertinent hx ENT: No pertinent hx Renal/: UTI, Benign prostatic enlarg. Endocrine: Hyperparathyroidism Dermatology: No pertinent hx PAST SURGICAL HISTORY Past Surgical History: Arthroscopy (right hip surgery), Cataract Removal, Other (parathyroid removal) FAMILY HISTORY Family History: Family History Unknown SOCIAL HISTORY Smoke: No ALCOHOL: other Drugs: None Lives: with Family CURRENT MEDICATIONS CURRENT MEDICATIONS Current Medications Medications (Trade) Dose Ordered Sig/Bhaskar Route PRN Reason Start Time Stop Time Status Last Admin Dose Admin Lactobacillus Rhamnosus (Culturelle) 1 cap BID PO 02/08/22 21:00 02/09/22 09:59 ALLERGIES ALLERGIES: Coded Allergies: acetaminophen (Verified Allergy, Intermediate, 02/06/22) hydrocodone (Verified Allergy, Intermediate, 02/06/22) ROS Review of System 14 point ROS evaluated with pertinent positives noted per HPI PHYSICAL EXAM General: Alert, Oriented X3, Cooperative, No acute distress HEENT: Atraumatic, Mucous membr. moist/pink Lungs: Clear to auscultation, Normal air movement Heart: Regular rate (SR), Normal S1, Normal S2, No murmurs Abdomen: Soft, No tenderness Extremities: No cyanosis, No edema Skin: No breakdown, No significant lesion Neuro: Normal speech, Sensation intact Psych/Mental Status: Mental status NL, Mood NL MUSCULOSKELETAL: Osteoarthritic changes both hands VITALS/I&O VITALS/I&O: Vital Signs Date Time Temp Pulse Resp B/P (MAP) Pulse Ox O2 Delivery O2 Flow Rate FiO2 02/09/22 10:05 97.8 79 18 147/77 (100) 95 Room Air 97.8 I & O 02/08/22 02/08/22 02/09/22 15:00 23:00 07:00 Intake Total 0 ml 200 ml Output Total 2100 ml 200 ml 350 ml Balance -2100 ml -200 ml -150 ml LABS Lab: Laboratory Tests Test 02/09/22 03:40 White Blood Count 9.7 x10^3/uL (4.0-11.0) Red Blood Count 4.29 x10^6/uL (4.30-5.70) L Hemoglobin 13.8 g/dL (13.0-17.5) Hematocrit 39.9 % (39.0-53.0) Mean Corpuscular Volume 93 fL (79-100) Mean Corpuscular Hemoglobin 32 pg (25-35) Mean Corpuscular Hemoglobin Concent 35 g/dL (31-37) Red Cell Distribution Width 12.9 % (11.5-14.5) Platelet Count 207 x10^3/uL (140-400) Neutrophils (%) (Auto) 68 % (31-73) Lymphocytes (%) (Auto) 18 % (24-48) L Monocytes (%) (Auto) 11 % (0-9) H Eosinophils (%) (Auto) 2 % (0-3) Basophils (%) (Auto) 1 % (0-3) Neutrophils # (Auto) 6.6 x10^3/uL (1.8-7.7) Lymphocytes # (Auto) 1.7 x10^3/uL (1.0-4.8) Monocytes # (Auto) 1.1 x10^3/uL (0.0-1.1) Eosinophils # (Auto) 0.2 x10^3/uL (0.0-0.7) Basophils # (Auto) 0.0 x10^3/uL (0.0-0.2) Sodium Level 141 mmol/L (136-145) Potassium Level 3.6 mmol/L (3.5-5.1) Chloride Level 105 mmol/L (98-107) Carbon Dioxide Level 29 mmol/L (21-32) Anion Gap 7 (6-14) Blood Urea Nitrogen 22 mg/dL (8-26) Creatinine 1.1 mg/dL (0.7-1.3) Estimated GFR (Cockcroft-Gault) 65.6 Glucose Level 93 mg/dL (70-99) Calcium Level 8.6 mg/dL (8.5-10.1) Magnesium Level 2.2 mg/dL (1.8-2.4) Laboratory Tests 02/09/22 03:40 Laboratory Tests 02/09/22 03:40 ASSESSMENT/PLAN ASSESSMENT/PLAN 1. Acute encephalopathy: UTI and withdrawal from wellbutrin possibly contributing. Presently AOx3 but irritable. 1:[address] 2. Abnormal EKG: SR with RBBB/LAFB He does not have hx of CAD or [place] 3. Bilateral UE paresthesia: Cervical radiculopathy?, doubt this is related to ACS 4. HTN urgency: now controlled 5. Hx of anxiety and depression Recommendations 1. TTE, FLP, TSH, trop 2. Continue home BP regimen 3. Given his age and cardiac risk factors would consider outpt stress test for further risk stratification KELLIE LYONS MD 02/09/222123: CARDIAC CONSULT ASSESSMENT/PLAN ASSESSMENT/PLAN Patient seen and examined. Agree with SHIPYARD PAINTER HELPER's assessment and plan Doubt clinical presentation c/w ACS BP better controlled Check 2D echo to assess LVF and r/o WMA Consider ischemic eval as outpatient Thank you for your consultation TRISH CAMPUZANO APRN Feb 09, 2022 14:21 KELLIE LYONS MD Feb 09, 2022 21:24
[2022-02-09 14:50] LABS: CHOLESTEROL/HDL RATIO 2.6
--- NOTE | 2022-02-09 16:07 | NUR ---
SS following up with discharge planning. SS reviewed pt chart and discussed with pt RN. Pt is currently on room air. COVID19 negative. Referral was sent to [facility], ; fax [phone]. [facility] contacted SS and requested copy of DPOA paperwork and reported that they cannot accommodate Begum at facility. Pt's RN notified. Pt's spouse does not have copy of DPOA paperwork. Pt's spouse reported that there is a copy on file at [facility]. Currently attempting to obtain DPOA records from [facility]. SS will continue to follow for discharge planning.
[2022-02-09 18:17] VITALS: BP 125/63
[2022-02-09 23:00] VITALS: BP 124/71
[2022-02-10 03:00] VITALS: BP 129/65
--- NOTE | 2022-02-10 04:43 | NUR ---
OCTAVIANO GATES called at 0405. Patient jumped out of bed and ran to the bathroom, MULTIMEDIA ENGINEER attempted to bring Mustafa with patient. Patient slammed bathroom door shut with mustafa in the door. When nurse was able to safely open the door, patient was sitting on the toilet with his eyes closed and had pulled Mustafa out with balloon intact. Patient was somnolent and would not talk to nurse at first. finally nurse was able to coax patient to go back to bed. Pt walked back to bed calmly. IV was also lost during this time. 4 sticks total by Nursing supervisor tellers and this nurse, was unable to get new IV. Patient was given IM Geodon. Pt resting calmly in bed at this time. Dr. Caputo notified. Bed in low locked position. 1:1 at bedside. Will continue to monitor.
[2022-02-10 05:56] LABS: CALCIUM 9.1 mg/dL (8.5-10.1); CREATININE 1.1 mg/dL (0.7-1.3); GFR 65.6; MAGNESIUM 2.1 mg/dL (1.8-2.4); POTASSIUM 3.9 mmol/L (3.5-5.1)
[2022-02-10 05:58] LABS: BASO # 0.1 x10^3/uL (0.0-0.2); BASO % 1 % (0-3); EOS # 0.2 x10^3/uL (0.0-0.7); EOS % 2 % (0-3); HEMATOCRIT 44.5 % (39.0-53.0); HEMOGLOBIN 14.8 g/dL (13.0-17.5); LYMPH # 2.7 x10^3/uL (1.0-4.8); LYMPH % 25 % (24-48); MEAN CORPUSCULAR HEMOGLOBIN 31 pg (25-35); MEAN CORPUSCULAR HGB CONC 33 g/dL (31-37); MEAN CORPUSCULAR VOLUME 94 fL (79-100); MONO # 1.1 x10^3/uL (0.0-1.1); MONO % 10 % (0-9); NEUT % 63 % (31-73); PLATELET COUNT 247 x10^3/uL (140-400); RED BLOOD COUNT 4.75 x10^6/uL (4.30-5.70); WHITE BLOOD COUNT 11.1 x10^3/uL (4.0-11.0)
[2022-02-10 07:13] VITALS: BP 124/66
[2022-02-10] MEDS: TAMSULOSIN 0.4 MG CAP.ER.24H. PO SCH ×2 (09:32→20:21)
[2022-02-10] MEDS: LACTOBACILLUS RHAMNOSUS GG 1 CAPSULE. PO SCH ×2 (09:33→20:21)
[2022-02-10] MEDS: LOSARTAN POTASSIUM 50 MG TABLET. PO SCH (09:33)
[2022-02-10] MEDS: FLUoxetine HCL 20 MG CAPSULE PO SCH (09:33)
--- NOTE | 2022-02-10 10:30 | PDOC ---
TRISH CAMPUZANO LEADERSHIP INTERN 02/10/22 1030: CARDIO Progress Notes Date and Time Date of Service 02/10/2022 Time of Evaluation 1000 Subjective Subjective: No Chest Pain, No shortness of breath, No Palpitations Vitals Vitals Vital Signs Date Time Temp Pulse Resp B/P (MAP) Pulse Ox O2 Delivery O2 Flow Rate FiO2 02/10/22 09:33 77 124/66 02/10/22 07:13 97.3 20 95 Room Air 97.3 Weight Weight [ ] Input and Output Intake and Output Intake and Output 02/10/22 06:59 Intake Total 2217 ml Output Total 2625 ml Balance -408 ml Intake Oral 2217 ml Output Urine Total 2625 ml Laboratory Labs Laboratory Tests Test 02/09/22 19:05 02/10/22 03:45 Troponin I High Sensitivity 15 ng/L (4-75) White Blood Count 11.1 x10^3/uL (4.0-11.0) Red Blood Count 4.75 x10^6/uL (4.30-5.70) Hemoglobin 14.8 g/dL (13.0-17.5) Hematocrit 44.5 % (39.0-53.0) Mean Corpuscular Volume 94 fL (79-100) Mean Corpuscular Hemoglobin 31 pg (25-35) Mean Corpuscular Hemoglobin Concent 33 g/dL (31-37) Red Cell Distribution Width 13.0 % (11.5-14.5) Platelet Count 247 x10^3/uL (140-400) Neutrophils (%) (Auto) 63 % (31-73) Lymphocytes (%) (Auto) 25 % (24-48) Monocytes (%) (Auto) 10 % (0-9) Eosinophils (%) (Auto) 2 % (0-3) Basophils (%) (Auto) 1 % (0-3) Neutrophils # (Auto) 7.0 x10^3/uL (1.8-7.7) Lymphocytes # (Auto) 2.7 x10^3/uL (1.0-4.8) Monocytes # (Auto) 1.1 x10^3/uL (0.0-1.1) Eosinophils # (Auto) 0.2 x10^3/uL (0.0-0.7) Basophils # (Auto) 0.1 x10^3/uL (0.0-0.2) Sodium Level 138 mmol/L (136-145) Potassium Level 3.9 mmol/L (3.5-5.1) Chloride Level 102 mmol/L (98-107) Carbon Dioxide Level 28 mmol/L (21-32) Anion Gap 8 (6-14) Blood Urea Nitrogen 20 mg/dL (8-26) Creatinine 1.1 mg/dL (0.7-1.3) Estimated GFR (Cockcroft-Gault) 65.6 Glucose Level 99 mg/dL (70-99) Calcium Level 9.1 mg/dL (8.5-10.1) Magnesium Level 2.1 mg/dL (1.8-2.4) Microbiology Micro Microbiology 02/07/22 Urine Culture - Final, Complete Staphylococcus Epidermidis Physical Exam HEENT: Neck Supple W Full Motion Chest: Symmetric LUNGS: Clear to Auscultation Heart: S1S2, RRR (no tele) Extremities: No Calf Tenderness Neurology: alert, follow commands, other (remains with 1:1 sitter) Assessment Assessment 1. Acute encephalopathy: UTI and withdrawal from wellbutrin possibly contributing. Remains irritable. 1:[address] 2. Abnormal EKG: SR with RBBB/LAFB He does not have hx of CAD or [place] 3. Bilateral UE paresthesia: Cervical radiculopathy?, doubt this is related to ACS 4. HTN urgency: now controlled 5. Hx of anxiety and depression Recommendations 1. TTE pending 2. Continue home BP regimen 3. Given his age and cardiac risk factors would consider outpt stress test for further risk stratification Justicifation of Admission Dx: Justifications for Admission: Justification of Admission Dx: Yes KELLIE LYONS MD 02/10/221930: CARDIO Progress Notes Assessment Assessment Patient seen and examined. Agree with MEAT BONER AND SLICER's assessment and plan BP better controlled 2D echo showed EF 40% with wall motion abnormalities Plan cardiac cath as outpatient possible in 1-2 TRISH Mejias LEADERSHIP INTERN Feb 10, 2022 10:30 KELLIE LYONS MD Feb 10, 2022 19:31
[2022-02-10 11:01] VITALS: BP 128/64
--- NOTE | 2022-02-10 11:08 | PDOC ---
[employer] PROGRESS NOTE Date of Service DOS: DATE: 02/10/22 TIME: 10:51 Chief Complaint Chief Complaint 71-year-old male with past medical history of parathyroid surgery last year and hypercalcemia subsequently from that who presents to the ED today for acute psychotic episode. Mainly the providing history due to altered mental status. states that patient has not been acting like himself since Monday night. Apparently the patient has been taking his antidepressants for several years but has been inconsistently taking it for the past 3 weeks. It is unsure when his last dose of Wellbutrin was although he states that his last dose was 3 weeks ago. Patient was confused and agitated and aggressive. Denies any SI or HI. Patient has paranoid thoughts. No reported fevers, nausea vomiting, chest pain, shortness of breath or trauma or falls. 02/08/2022 No acute events overnight. Patient seen examined bedside. Sleeping and at bedside. Still with some disorganized bizarre thinking. No SI or HI. One-to-one has been discontinued. I have resumed his Prozac at half the dose for tapering purposes. We will continue to observe in the hospital. Still pending for urine cultures. Continue with IV Rocephin for now. Begum in place and Flomax restarted. Patient's chart, labs, images were reviewed and discussed with RN 02/09/2022 No acute events overnight. Patient seen examined bedside. SSRI started yesterday with sertraline. Still some bizarre behavior reported by the nurses. No aggression or SI or HI. Patient may benefit from Jaleesa psych admission. Patient's chart, labs, images were reviewed and discussed with RN History of Present Illness History of Present Illness Assessment/Plan Acute metabolic/toxic and infectious encephalopathy, likely due to Wellbutrin abrupt cessation and UTI History of alcohol use, concern for EtOH withdrawal Acute UTI due to staph epidermidis JUSTYN due to vasomotor nephropathy. Hypertensive urgency Urinary retention History of BPH History of parathyroid surgery History of hypertension Pending urine culture sensitivities Post void bladder scan shows greater than 700. Will replace Begum add Flomax and finasteride. Pending urology evaluation Resume losartan and amlodipine Continue IV fluids Continue empiric IV antibiotics Follow-up urine cultures Consider taper Wellbutrin, will observe for now DC one-to-one observation SCD and ambulation for DVT prophylaxis Regular diet CODE STATUS full Discussed with RN and ANTONELLA Disposition inpatient management as above DPOA: Vitals/I&O Vitals/I&O: Vital Signs Date Time Temp Pulse Resp B/P (MAP) Pulse Ox O2 Delivery O2 Flow Rate FiO2 02/10/22 09:33 77 124/66 02/10/22 08:00 Room Air 02/10/22 07:13 97.3 20 95 97.3 I & O 02/09/22 02/09/22 02/10/22 15:00 23:00 07:00 Intake Total 1617 ml 500 ml 100 ml Output Total 900 ml 1525 ml 200 ml Balance 717 ml -1025 ml -100 ml Physical Exam General: Alert, Oriented X3, Cooperative, No acute distress Heart: Regular rate (SR), Normal S1, Normal S2, No murmurs Lungs: Clear Abdomen: Soft, No tenderness Extremities: No cyanosis, No edema Skin: No breakdown, No significant lesion Labs Labs: Laboratory Tests Test 02/09/22 19:05 02/10/22 03:45 Troponin I High Sensitivity 15 ng/L (4-75) White Blood Count 11.1 x10^3/uL (4.0-11.0) Red Blood Count 4.75 x10^6/uL (4.30-5.70) Hemoglobin 14.8 g/dL (13.0-17.5) Hematocrit 44.5 % (39.0-53.0) Mean Corpuscular Volume 94 fL (79-100) Mean Corpuscular Hemoglobin 31 pg (25-35) Mean Corpuscular Hemoglobin Concent 33 g/dL (31-37) Red Cell Distribution Width 13.0 % (11.5-14.5) Platelet Count 247 x10^3/uL (140-400) Neutrophils (%) (Auto) 63 % (31-73) Lymphocytes (%) (Auto) 25 % (24-48) Monocytes (%) (Auto) 10 % (0-9) Eosinophils (%) (Auto) 2 % (0-3) Basophils (%) (Auto) 1 % (0-3) Neutrophils # (Auto) 7.0 x10^3/uL (1.8-7.7) Lymphocytes # (Auto) 2.7 x10^3/uL (1.0-4.8) Monocytes # (Auto) 1.1 x10^3/uL (0.0-1.1) Eosinophils # (Auto) 0.2 x10^3/uL (0.0-0.7) Basophils # (Auto) 0.1 x10^3/uL (0.0-0.2) Sodium Level 138 mmol/L (136-145) Potassium Level 3.9 mmol/L (3.5-5.1) Chloride Level 102 mmol/L (98-107) Carbon Dioxide Level 28 mmol/L (21-32) Anion Gap 8 (6-14) Blood Urea Nitrogen 20 mg/dL (8-26) Creatinine 1.1 mg/dL (0.7-1.3) Estimated GFR (Cockcroft-Gault) 65.6 Glucose Level 99 mg/dL (70-99) Calcium Level 9.1 mg/dL (8.5-10.1) Magnesium Level 2.1 mg/dL (1.8-2.4) Assessment and Plan Assessmemt and Plan Problems Medical Problems: (1) Altered mental status Status: Acute (2) Psychological assessment Status: Acute (3) UTI (urinary tract infection) Status: Acute Comment Review of Relevant I have reviewed the following items monty (where applicable) has been applied. Justifications for Admission Other Justification Encephalopathy CHRIS GUILLEN MD Feb 10, 2022 11:08
[2022-02-10] MEDS: FINASTERIDE 5 MG TABLET. PO SCH (12:00)
--- NOTE | 2022-02-10 12:05 | NUR ---
SS following up with discharge planning. SS reviewed pt chart and discussed with pt RN. Pt is currently on room air. COVID19 negative. Cardiology and Urology consulted. Pt on IV Rocephin. Begum cath. Pt remains 1:1 at this time. Pt has no medical DPOA. Pt accepted at [facility] but is unable to go without DPOA paperwork and cannot admit with a Begum. SS and pt's RN met with pt and spouse this AM. 1:1 present in room. Pt very clear today and was able to state his name, , home address, and identify his spouse and his current location in addition to other demographic questions. Pt answered all questions appropriately and without hesitation. Pt stated that he would like his spouse and brother to be his Medical DPOA's in the event he needed assistance. Medical DPOA completed in front of all parties. Richard from PAT team re-evaluating pt this morning. Per RN, pt still needing continued Begum care. SS will continue to follow for discharge planning.
--- NOTE | 2022-02-10 13:15 | PDOC2 ---
EMRE PALOMO 02/10/22 1315: UROLOGY CONSULT Date of Service DATE: 02/10/22 TIME: 13:06 Reason for Consult Reason for Consult: retention Identification/Chief Complaint Chief Complaint psychosis History of Present Illness Reason for Visit: 71yo male admitted for treatment of acute psychosis. Typically takes wellbutrin but has taken inconsistently. Pt has started to improve some throughout this hospitalization. This afternoon he is calm and answers my questions appropriately. Mustafa was placed on admission for bladder scan of 700mL. Last night he jumped out of bed to the bathroom and his mustafa came out. States he "di d a self catheter-ectomy". This morning it was replaced for bladder scan of ~600mL. Pt endorses history of BPH and retention. He sees Dr. Francis for this, and is on flomax 0.8mg and proscar. He was recommended to for HOLEP but this hasn't been done yet. Pt denies hematuria but has had some bleeding around mustafa from traumatic removal. is bedside and corroborates his history. He was accepted at [facility] psych but cannot go with a mustafa. Past Medical History Cardiovascular: HTN, Hyperlipidemia Pulmonary: No pertinent hx CENTRAL NERVOUS SYSTEM: Other (No pertinent history) GI: No pertinent hx Heme/Onc: No pertinent hx Hepatobiliary: No pertinent hx Psych: Anxiety, Depression Musculoskeletal: Osteoarthritis Rheumatologic: No pertinent hx Infectious disease: No pertinent hx ENT: No pertinent hx Renal/: UTI, Benign prostatic enlarg. Endocrine: Hyperparathyroidism Dermatology: No pertinent hx Past Surgical History Past Surgical History: Arthroscopy (right hip surgery), Cataract Removal, Other (parathyroid removal) Family History Family History: Family History Unknown Social History No ALCOHOL: other Drugs: None Lives: with Family Current Medications Current Medications Current Medications Finasteride (Proscar) 5 mg DAILY PO Last administered on 02/10/22at 12:00; Start 02/10/22 at 11:00 Allergies Allergies: Coded Allergies: acetaminophen (Verified Allergy, Intermediate, 02/06/22) hydrocodone (Verified Allergy, Intermediate, 02/06/22) ROS Review Of Systems: CONSTITUTIONAL: No fever or chills EYES: No recent changes SKIN: No rash or itching CARDIOVASCULAR: No chest pain, syncope, palpitations, or edema RESPIRATORY: No SOB or cough GASTROINTESTINAL: No nausea, vomiting or abdominal pain NEUROLOGICAL: No headaches or weakness ENDOCRINE: No cold or heat intolerance GENITOURINARY: as in hpi MUSCULOSKELETAL: No back pain or joint pain LYMPHATICS: No enlarged lymph nodes PSYCHIATRIC: as in hpi Physical Exam Physical Exam: General: Pleasant, no acute distress, well groomed Eyes: conjunctiva anicteric, eyes full range of motion ENT: moist oral mucosa, normal dentition Neck: Trachea midline, no masses Respiratory: unlabored breathing, not using accessory muscles, no crackles or wheezes Cardiovascular: Regular rate and rhythm, no peripheral edema Abdomen: nontender, nondistended, no hepatosplenomegaly, no masses : mustafa draining yellow urine. Some dried blood around mustafa at meatus. Skin: no rashes or skin lesions on visualized skin Psych: normal mood, affect. Alert and oriented x 3. Vitals VITALS Vital Signs Date Time Temp Pulse Resp B/P (MAP) Pulse Ox O2 Delivery O2 Flow Rate FiO2 02/10/22 11:01 97.8 85 20 128/64 (85) 97 Room Air 97.8 Labs Labs Laboratory Tests Test 02/09/22 03:40 02/09/22 19:05 02/10/22 03:45 White Blood Count 9.7 x10^3/uL (4.0-11.0) 11.1 x10^3/uL (4.0-11.0) Red Blood Count 4.29 x10^6/uL (4.30-5.70) 4.75 x10^6/uL (4.30-5.70) Hemoglobin 13.8 g/dL (13.0-17.5) 14.8 g/dL (13.0-17.5) Hematocrit 39.9 % (39.0-53.0) 44.5 % (39.0-53.0) Mean Corpuscular Volume 93 fL (79-100) 94 fL (79-100) Mean Corpuscular Hemoglobin 32 pg (25-35) 31 pg (25-35) Mean Corpuscular Hemoglobin Concent 35 g/dL (31-37) 33 g/dL (31-37) Red Cell Distribution Width 12.9 % (11.5-14.5) 13.0 % (11.5-14.5) Platelet Count 207 x10^3/uL (140-400) 247 x10^3/uL (140-400) Neutrophils (%) (Auto) 68 % (31-73) 63 % (31-73) Lymphocytes (%) (Auto) 18 % (24-48) 25 % (24-48) Monocytes (%) (Auto) 11 % (0-9) 10 % (0-9) Eosinophils (%) (Auto) 2 % (0-3) 2 % (0-3) Basophils (%) (Auto) 1 % (0-3) 1 % (0-3) Neutrophils # (Auto) 6.6 x10^3/uL (1.8-7.7) 7.0 x10^3/uL (1.8-7.7) Lymphocytes # (Auto) 1.7 x10^3/uL (1.0-4.8) 2.7 x10^3/uL (1.0-4.8) Monocytes # (Auto) 1.1 x10^3/uL (0.0-1.1) 1.1 x10^3/uL (0.0-1.1) Eosinophils # (Auto) 0.2 x10^3/uL (0.0-0.7) 0.2 x10^3/uL (0.0-0.7) Basophils # (Auto) 0.0 x10^3/uL (0.0-0.2) 0.1 x10^3/uL (0.0-0.2) Sodium Level 141 mmol/L (136-145) 138 mmol/L (136-145) Potassium Level 3.6 mmol/L (3.5-5.1) 3.9 mmol/L (3.5-5.1) Chloride Level 105 mmol/L (98-107) 102 mmol/L (98-107) Carbon Dioxide Level 29 mmol/L (21-32) 28 mmol/L (21-32) Anion Gap 7 (6-14) 8 (6-14) Blood Urea Nitrogen 22 mg/dL (8-26) 20 mg/dL (8-26) Creatinine 1.1 mg/dL (0.7-1.3) 1.1 mg/dL (0.7-1.3) Estimated GFR (Cockcroft-Gault) 65.6 65.6 Glucose Level 93 mg/dL (70-99) 99 mg/dL (70-99) Calcium Level 8.6 mg/dL (8.5-10.1) 9.1 mg/dL (8.5-10.1) Magnesium Level 2.2 mg/dL (1.8-2.4) 2.1 mg/dL (1.8-2.4) Triglycerides Level 78 mg/dL (0-150) Cholesterol Level 175 mg/dL (0-200) LDL Cholesterol, Calculated 91 mg/dL (0-100) VLDL Cholesterol, Calculated 16 mg/dL (0-40) Non-HDL Cholesterol Calculated 107 mg/dL (0-129) HDL Cholesterol 68 mg/dL (40-60) Cholesterol/HDL Ratio 2.6 Thyroid Stimulating Hormone (TSH) 1.646 uIU/mL (0.358-3.74) Troponin I High Sensitivity 15 ng/L (4-75) Laboratory Tests Test 02/09/22 19:05 02/10/22 03:45 Troponin I High Sensitivity 15 ng/L (4-75) White Blood Count 11.1 x10^3/uL (4.0-11.0) Red Blood Count 4.75 x10^6/uL (4.30-5.70) Hemoglobin 14.8 g/dL (13.0-17.5) Hematocrit 44.5 % (39.0-53.0) Mean Corpuscular Volume 94 fL (79-100) Mean Corpuscular Hemoglobin 31 pg (25-35) Mean Corpuscular Hemoglobin Concent 33 g/dL (31-37) Red Cell Distribution Width 13.0 % (11.5-14.5) Platelet Count 247 x10^3/uL (140-400) Neutrophils (%) (Auto) 63 % (31-73) Lymphocytes (%) (Auto) 25 % (24-48) Monocytes (%) (Auto) 10 % (0-9) Eosinophils (%) (Auto) 2 % (0-3) Basophils (%) (Auto) 1 % (0-3) Neutrophils # (Auto) 7.0 x10^3/uL (1.8-7.7) Lymphocytes # (Auto) 2.7 x10^3/uL (1.0-4.8) Monocytes # (Auto) 1.1 x10^3/uL (0.0-1.1) Eosinophils # (Auto) 0.2 x10^3/uL (0.0-0.7) Basophils # (Auto) 0.1 x10^3/uL (0.0-0.2) Sodium Level 138 mmol/L (136-145) Potassium Level 3.9 mmol/L (3.5-5.1) Chloride Level 102 mmol/L (98-107) Carbon Dioxide Level 28 mmol/L (21-32) Anion Gap 8 (6-14) Blood Urea Nitrogen 20 mg/dL (8-26) Creatinine 1.1 mg/dL (0.7-1.3) Estimated GFR (Cockcroft-Gault) 65.6 Glucose Level 99 mg/dL (70-99) Calcium Level 9.1 mg/dL (8.5-10.1) Magnesium Level 2.1 mg/dL (1.8-2.4) Assessment/Plan Assessment/Plan Acute urinary retention Has underlying BPH. Acute psychosis/confusion likely exacerbated the situation. He seems to be improving. Continue flomax and proscar. Mustafa just replaced this morning. Would give 3-4 days prior to another voiding trial, when his mental status is hopefully at baseline. If he is able to discharge home before this, he can f/u in the clinic next week for voiding tri al. SUSSY ROSS MD 02/10/22 3334: UROLOGY CONSULT Assessment/Plan Assessment/Plan Agree with assessment and plan. Keep in mustafa for now, then voiding trial in a few days, Ultimately would benefit from following through on prior referral to [facility] for HoLEP procedure. EMRE PALOMO Feb 10, 2022 13:15 SUSSY ROSS MD Feb 10, 2022 21:54
--- NOTE | 2022-02-10 13:40 | CARD ---
MR#: [id number] Date of Study: 02/10/2022 Ordering Physician: TRISH CAMPUZANO, Referring Physician: TRISH CAMPUZANO Tech: Ary Cardoso [facility] APPROVED REPORT EXAM: Two-dimensional and M-mode echocardiogram with Doppler and color Doppler. Other Information Quality : AverageHR: 74bpm Rhythm : NSR INDICATION Abnormal ECG 2D DIMENSIONS Left Atrium(2D)3.8 (1.6-4.0cm)IVSd1.4 (0.7-1.1cm) Aortic Root(2D)4.2 (2.0-3.7cm)LVDd5.3 (3.9-5.9cm) LVOT Diameter2.2 (1.8-2.4cm)PWd1.4 (0.7-1.1cm) LVDs4.0 (2.5-4.0cm)FS (%) 24.2 % SV64.2 mlLVEF(%)47.8 (>50%) Aortic Valve AoV Peak Clifton.139.6cm/sAoV VTI27.4cm AO Peak GR.7.8mmHgLVOT Peak Clifton.73.2cm/s AO Mean GR.5mmHgAVA (VMAX)2.08cm2 Mitral Valve MV E Qdnrmrxw10.2cm/sMV DECEL BHMO506to MV A Voxmndiq967.0cm/sE/A Ratio0.5 Pulmonary Valve PV Peak Bamzvsfn85.3cm/s Tricuspid Valve TR P. Mngstkey013ag/sTR Peak Gr.5mmHg Pulmonary Vein S1 Qycamhdg88.1cm/sD2 Vhmnbagp77.6cm/s LEFT VENTRICLE The left ventricle is normal size. There is mild to moderate concentric left ventricular hypertrophy. The systolic function is moderately impaired. EF 40% Basal to mid inferior wall is moderate to sever michelle hypokinetic. The remainder of the LV is severly hypokinetic. Tissue Doppler imaging reveals abnor mal left ventricular diastolic dysfunction. No left ventricle thrombus noted on this study. There is no ventricular septal defect visualized. There is no left ventricular aneurysm. There is no mass note d in the left ventricle. RIGHT VENTRICLE The right ventricle is normal size. There is normal right ventricular wall thickness. The right ventr icular systolic function is normal. ATRIA The left atrium size is normal. The right atrium size is normal. The interatrial septum is intact wit h no evidence for an atrial septal defect or patent foramen ovale as noted on 2-D or Doppler imaging. AORTIC VALVE The aortic valve is mildly sclerotic. The aortic valve is trileaflet. Doppler and Color Flow revealed trace to mild aortic regurgitation. There is no significant aortic valvular stenosis. There is no ao rtic valvular vegetation. MITRAL VALVE The mitral valve is normal in structure and function. There is no evidence of mitral valve prolapse. There is no mitral valve stenosis. Doppler and Color-flow revealed trace to mild mitral regurgitation . TRICUSPID VALVE The tricuspid valve is normal in structure and function. Doppler and Color Flow revealed no tricuspid valve regurgitation noted. There is no tricuspid valve prolapse or vegetation. There is no tricuspid valve stenosis. PULMONIC VALVE Doppler and Color Flow revealed no pulmonic valvular regurgitation. There is no pulmonic valvular lizbeth nosis. GREAT VESSELS The aortic root is normal in size. The ascending aorta is mildly dilated at 4.3 cm The IVC was not vi sualized. PERICARDIAL EFFUSION There is no evidence of significant pericardial effusion. Critical Notification Critical Value: No <Conclusion> The systolic function is moderately impaired. EF 40% Basal to mid inferior wall is moderate to severely hypokinetic. The remainder of the LV is severly hy pokinetic. The ascending aorta is mildly dilated at 4.3 cm Signed by : Santana Campbell, Electronically Approved : 02/10/2022 13:40:14
--- NOTE | 2022-02-10 14:14 | NUR ---
Antibiotic late d\t awaiting IV access.
[2022-02-10] MEDS: cefTRIAXone IV Push 1 GM VIAL. IVP SCH (14:17)
[2022-02-10 15:13] VITALS: BP 132/66
[2022-02-10 18:55] VITALS: BP 136/63
[2022-02-10] MEDS: LORazepam 0.5 MG TABLET PO PRN (21:16)
[2022-02-10 23:22] VITALS: BP 146/64
[2022-02-11 03:40] VITALS: BP 135/70
[2022-02-11] MEDS: LORazepam 0.5 MG TABLET PO PRN (03:47)
--- NOTE | 2022-02-11 04:45 | NUR ---
Pt is A/Ox4, has been able to report when feeling "flights of ideas", medications given at these times. Pt remains, calm and has had organized thoughts through out shift. Per patient request, all bed rails were up while sleeping. Will continue to monitor.
[2022-02-11 07:00] VITALS: BP 148/76
[2022-02-11] MEDS: LOSARTAN POTASSIUM 50 MG TABLET. PO SCH (08:39)
[2022-02-11] MEDS: TAMSULOSIN 0.4 MG CAP.ER.24H. PO SCH (08:40)
[2022-02-11] MEDS: FLUoxetine HCL 20 MG CAPSULE PO SCH (08:40)
[2022-02-11] MEDS: FINASTERIDE 5 MG TABLET. PO SCH (08:40)
[2022-02-11] MEDS: LACTOBACILLUS RHAMNOSUS GG 1 CAPSULE. PO SCH (08:41)
[2022-02-11 11:00] VITALS: BP 142/65
[2022-02-11] MEDS ORDERED: FLUO20CA22 PO (11:28)
[2022-02-11] MEDS ORDERED: LORA0.5T96 PO (11:28)
[2022-02-11] MEDS ORDERED: AMOX1TAB58 PO (11:28)
--- NOTE | 2022-02-11 11:36 | DISCH ---
DISCHARGE INSTRUCTIONS Condition on Discharge Condition on Discharge: Stable Activity After Discharge Activity Instructions for Disc: Activity as tolerated Exercise Instruction after Dis: Walk 30 min, 5 x per week Driving Instructions after Dis: Do not drive today Diet after Discharge Diet after Discharge: Cardiac Follow-Up Follow up with: PCP within 2 weeks of discharge Follow Up With: Urology in 1 week for voiding trial CHRIS GUILLEN MD Feb 11, 2022 11:36
--- NOTE | 2022-02-15 16:56 | PDOC3 ---
[facility]-Discharge Summary Date of Admission: Date of Admission: Feb 07, 2022 Date of Discharge: Date of Discharge: Feb 11, 2022 Discharge Diagnosis: Discharge Diagnosis: Acute metabolic/toxic and infectious encephalopathy, likely due to Wellbutrin abrupt cessation and UTI History of alcohol use, concern for EtOH withdrawal Acute UTI due to staph epidermidis JUSTYN due to vasomotor nephropathy. Hypertensive urgency Urinary retention History of BPH History of parathyroid surgery History of hypertension Procedures: Procedures: PROCEDURE: CT HEAD WO CONTRAST INDICATION: Reason: AMS / Spl. Instructions: / History: COMPARISON: One day prior TECHNIQUE: Axial CT images obtained through the head without intravenous contrast. One or more of the following individualized dose reduction techniques were utilized for this examination: 1. Automated exposure control; 2. Adjustment of the mA and/or kV according to patient size; 3. Use of iterative reconstruction technique. FINDINGS: No intracranial hemorrhage. No significant midline shift. Ventricles and sulci are globally prominent. Scattered foci of low attenuation within the white matter. IMPRESSION: * No acute intracranial hemorrhage. * Scattered regions of low attenuation within the white matter. Non-specific in nature but a common finding and frequently secondary to small vessel ischemic disease. If there is high concern for acute cause clinically MRI could better assess acuity. Hospital Course: Hospital Course: 71-year-old male with past medical history of parathyroid surgery last year and hypercalcemia subsequently from that who presents to the ED today for acute psychotic episode. Mainly the providing history due to altered mental status. states that patient has not been acting like himself since Monday night. Apparently the patient has been taking his antidepressants for several years but has been inconsistently taking it for the past 3 weeks. It is unsure when his last dose of Wellbutrin was although he states that his last dose was 3 weeks ago. Patient was confused and agitated and aggressive. Denies any SI or HI. Patient has paranoid thoughts. No reported fevers, nausea vomiting, chest pain, shortness of breath or trauma or falls. 02/08/2022 No acute events overnight. Patient seen examined bedside. Sleeping and at bedside. Still with some disorganized bizarre thinking. No SI or HI. One-to-one has been discontinued. I have resumed his Prozac at half the dose for tapering purposes. We will continue to observe in the hospital. Still pending for urine cultures. Continue with IV Rocephin for now. Begum in place and Flomax restarted. Patient's chart, labs, images were reviewed and discussed with RN 02/09/2022 No acute events overnight. Patient seen examined bedside. SSRI started yesterday with sertraline. Still some bizarre behavior reported by the nurses. No aggression or SI or HI. Patient may benefit from [facility] psych admission. Patient's chart, labs, images were reviewed and discussed with RN By day of discharge patient is markedly improved however he does still have some bizarre thoughts. He is not a harm to himself or others. He will need close follow-up with at least behavioral health and possible redirection to possible consider CBT. I have instructed the patient to consist to you taper off his fluoxetine. Patient is not actively withdrawing at this time. At day of discharge patient's vitals are stable. He will need to continue Augmentin to complete his course for his treatment for his UTI. He will also need to follow- up closely with urology for voiding trial. He was discharged with a Begum catheter and that needs to be managed by himself and the spouse. Rest of hospital course was uneventful Disposition: Disposition/Orders: D/C to Home Activity: Activity: Resume previous activity Diet: Diet: Cardiac Medications: Home Meds Active Scripts Lorazepam (ATIVAN) 0.5 Mg Tablet, 0.5 MG PO BID for anxiety for 5 Days, #10 TAB Prov:CHRIS GUILLEN MD 02/11/22 Amoxicillin/Potassium Clav (AUGMENTIN 500-125 TABLET) 1 Each Tablet, 1 TAB PO BID for UTI for 5 Days, #10 TAB 0 Refills Prov:CHRIS GUILLEN MD 02/11/22 Fluoxetine Hcl (FLUOXETINE HCL) 20 Mg Capsule, 20 MG PO DAILY for depression taper dose for 30 Days, #30 CAP Prov:CHRIS GUILLEN MD 02/11/22 Reported Medications Amlodipine Besylate (AMLODIPINE BESYLATE) 10 Mg Tablet, 10 MG PO DAILY for , TAB 02/07/22 Finasteride (FINASTERIDE) 5 Mg Tablet, 10 MG PO DAILY for , TAB 02/07/22 Losartan Potassium (LOSARTAN POTASSIUM) 100 Mg Tablet, 100 MG PO DAILY for HYPERTENSION, TAB 02/07/22 Tamsulosin Hcl (FLOMAX) 0.4 Mg Cap.er.24h, 0.4 MG PO DAILY for , TAB 02/07/22 Discontinued Reported Medications Finasteride (FINASTERIDE) 5 Mg Tablet, 5 MG PO DAILY for , TAB 02/07/22 Bupropion Hcl (WELLBUTRIN XL) 150 Mg Tab.er.24h, 150 MG PO DAILY for , TAB.SR 02/07/22 Fluoxetine Hcl (PROZAC) 40 Mg Capsule, 40 MG PO DAILY for , CAP 02/07/22 Scheduled Amlodipine Besylate (Amlodipine Besylate), 10 MG PO DAILY, (Reported) Amoxicillin/Potassium Clav (Augmentin 500-125 Tablet), 1 TAB PO BID Finasteride (Finasteride), 10 MG PO DAILY, (Reported) Fluoxetine Hcl (Fluoxetine Hcl), 20 MG PO DAILY Lorazepam (Ativan), 0.5 MG PO BID Losartan Potassium (Losartan Potassium), 100 MG PO DAILY, (Reported) Tamsulosin Hcl (Flomax), 0.4 MG PO DAILY, (Reported) Discontinued Medications Bupropion Hcl (Wellbutrin Xl), 150 MG PO DAILY, (Reported) Finasteride (Finasteride), 5 MG PO DAILY, (Reported) Fluoxetine Hcl (Prozac), 40 MG PO DAILY, (Reported) Total Time: Total Time: Total time spent was 35 minutes in preparing scripts, discharge planning with [facility]I and RN and preparing this discharge summary Patient seen and examined on day of discharge. No acute abnormal findings. Justicifation of Admission Dx: Justifications for Admission: Justification of Admission Dx: Yes CHRIS GUILLEN MD Feb 15, 2022 16:56
== END 2022-02-11 12:05 | disposition home or self-care (01) | DRG 871 ==
LOC: ER 16:53 → 6 SOUTH 22:48
PROVIDERS: ADMIT Internal Medicine; ATTEND Internal Medicine
DX: A41.9 Sepsis, unspecified organism (principal); N17.0 Acute kidney failure with tubular necrosis; G92.8 Other toxic encephalopathy; N39.0 Urinary tract infection, site not specified; F23 Brief psychotic disorder; B95.7 Other staphylococcus as the cause of diseases classified elsewhere; E78.5 Hyperlipidemia, unspecified; I10 Essential (primary) hypertension; I16.0 Hypertensive urgency; I25.2 Old myocardial infarction; I45.10 Unspecified right bundle-branch block; M54.12 Radiculopathy, cervical region; N40.1 Benign prostatic hyperplasia with lower urinary tract symptoms; R33.8 Other retention of urine; E21.3 Hyperparathyroidism, unspecified; F32.A Depression, unspecified; F41.9 Anxiety disorder, unspecified; M19.90 Unspecified osteoarthritis, unspecified site; Z20.822 Contact with and (suspected) exposure to COVID-19; Z88.8 Allergy status to other drugs, medicaments and biological substances; Z79.899 Other long term (current) drug therapy
CPT/HCPCS: 36415; 70450; 80048; 80053; 80061; 80307; 80329; 81001; 82550; 83735; 84100; 84443; 84484; 85025; 87077; 87086; 87426; 93005; 93306; 96361; 96365; 96372; 96375; G0480; J0360; J0696; J2060; J3486; J7030; U0003; 99285-25; C8929; G0378; Q0163